=== PATIENT | female | born 1975 ===

== ENCOUNTER 2024-08-18 12:35 | Day surgery (SDC) | payer OTHER ==
[2024-08-18] MEDS ORDERED: TYLENOL ARTHRI650 MG PO (13:29)
[2024-08-18] MEDS ORDERED: MIRALAX17 GM PO (13:29)
[2024-08-18] MEDS ORDERED: TRAMADOL HCL50 MG PO (13:29)
[2024-08-18] MEDS ORDERED: KETO10TA2 PO (13:29)
[2024-08-18] MEDS ORDERED: CEFAZOLIN SODIUM 1,000 MG VIAL IV ONE (16:45)
[2024-08-18] MEDS ORDERED: BUPIVACAINE HCL 30 ML VIAL IJ ONE (16:45)
== END 2024-08-18 17:55 | disposition home or self-care (01) ==
LOC: CIR.AMB 12:35
PROVIDERS: ATTEND Surgery
DX: K42.0 Umbilical hernia with obstruction, without gangrene (principal)